=== PATIENT | male | born 1965 | race Caucasian/White ===

== ENCOUNTER 2021-11-28 07:45 | Inpatient (IN) | payer OTHER ==
[~2021-11-28] VITALS: Ht 185.4 cm; Wt 104.3 kg
[~2021-11-28 07:45] MED LIST: CEFADROXIL500 MG PO; PERCOCET 5-3251 EACH PO; XARELTO10 MG PO
[2021-11-28] MEDS ORDERED: METFORMIN HCL500 M3 PO (09:21)
[2021-11-28] MEDS ORDERED: PRILOSEC OTC20 MG PO (09:21)
[2021-11-28] MEDS ORDERED: LIPITOR20 MG PO (09:21)
[2021-11-28] MEDS ORDERED: CIALIS5 MG PO (09:22)
[2021-12-02] MEDS ORDERED: OMEPRAZOLE20 MG (10:23)
[2021-12-04] MEDS ORDERED: PERCOCET 5-3251 EACH PO (13:12)
[2021-12-04] MEDS ORDERED: DUI500 PO (13:12)
[2021-12-04] MEDS ORDERED: XARELTO10 MG PO (13:12)
== END 2021-12-04 19:16 | disposition home or self-care (01) | DRG 470 ==
LOC: O/R 12-02 06:08 → SURH 12-02 06:08
PROVIDERS: ADMIT Orthopaedic Surgery; ATTEND Orthopaedic Surgery
PROC: 0SRD0J9 Replacement of Left Knee Joint with Synthetic Substitute, Cemented, Open Approach (ICD-10-PCS; principal; 2021-12-02 16:30)
DX: M17.12 Unilateral primary osteoarthritis, left knee (principal); D62 Acute posthemorrhagic anemia; M22.12 Recurrent subluxation of patella, left knee; E11.9 Type 2 diabetes mellitus without complications; K21.9 Gastro-esophageal reflux disease without esophagitis; Z20.822 Contact with and (suspected) exposure to COVID-19

== ENCOUNTER 2024-09-29 09:57 | Outpatient (CLI) | payer OTHER ==
[~2024-09-29 09:57] MED LIST changes: +CIALIS5 MG PO; +DUI500 PO; +LIPITOR20 MG PO; +METFORMIN HCL500 M3 PO; +OMEPRAZOLE20 MG; +PRILOSEC OTC20 MG PO
== END 2024-09-29 10:03 | disposition home or self-care (01) ==
LOC: SONOGRAMA 09:57
DX: L98.9 Disorder of the skin and subcutaneous tissue, unspecified (principal)

== ENCOUNTER 2024-10-16 14:52 | Outpatient (CLI) | payer OTHER | END 2024-10-16 14:55 | disposition home or self-care (01) | LOC: RAD 14:52 | PROVIDERS: ATTEND Orthopaedic Surgery Orthopaedic Surgery of the Spine | DX: M43.26 Fusion of spine, lumbar region (principal) ==

== ENCOUNTER → 2024-12-29 | Emergency (ER) | payer OTHER ==
[~2024-12-29] VITALS: Ht 185.4 cm; Wt 103.4 kg
[~2024-12-29] MED LIST changes: +POVIDONE-IODINE 118 ML BOTT TOP ONE
== END | disposition home or self-care (01) ==
LOC: ER 11:04
DX: S69.82XA Other specified injuries of left wrist, hand and finger(s), initial encounter (principal); W18.39XA Other fall on same level, initial encounter; Y93.89 Activity, other specified; Y92.413 State road as the place of occurrence of the external cause

== ENCOUNTER 2025-03-16 12:44 | Outpatient (CLI) | payer OTHER ==
[~2025-03-16 12:44] MED LIST changes: -POVIDONE-IODINE 118 ML BOTT TOP ONE
== END 2025-03-16 12:46 | disposition home or self-care (01) ==
LOC: TOM 12:44
PROVIDERS: ATTEND Internal Medicine
DX: R06.00 Dyspnea, unspecified (principal); G47.33 Obstructive sleep apnea (adult) (pediatric); J44.9 Chronic obstructive pulmonary disease, unspecified; F17.200 Nicotine dependence, unspecified, uncomplicated; J45.30 Mild persistent asthma, uncomplicated

== ENCOUNTER 2025-06-05 06:45 | Outpatient (CLI) | payer OTHER ==
[2025-06-05 07:48] LABS: BASO % 0.6 % (0.1-1.2); EOS # 0.25 (0.04-0.54); EOS % 3.1 % (0.7-7.0); LYMPH # 3.05 (1.18-3.74); LYMPH % 37.6 % (19.3-53.1); MEAN PLATELET VOLUME 9.30 fl (9.4-12.4); MONO # 0.63 (0.24-0.82); MONO % 7.8 % (4.7-12.5); NEUT # 4.11 (1.56-6.13); NEUT % 50.7 % (34.0-71.1); RED CELL DISTRIBUTION WIDTH 12.8 % (11.6-14.4)
[2025-06-05 07:50] LABS: URINE APPEARANCE Clear; URINE BILIRRUBIN Negative (NEGATIVE); URINE BLOOD Small; URINE COLOR Yellow; URINE GLUCOSE Negative (NEGATIVE); URINE KETONE Negative (NEGATIVE); URINE LEUKOCYTE Negative; URINE NITRATE Negative; URINE PROTEIN Trace (NEGATIVE); URINE UROBILINOGEN 0.2 E.U./dl
[2025-06-05 07:51] LABS: URINE BACTERIA 5.9 uL (0.0-1933); URINE EPITHELIAL CELLS 2.2 uL (0.0-38.8); URINE RBC 44.2 uL (0.0-20.8); URINE WBC 1.9 uL (0.0-23.2)
[2025-06-05 08:11] LABS: URINE CAST 0.00 uL (0.0-1.40)
[2025-06-05 08:53] LABS: ALT/SGPT 28.0 U/L (12-78); AST/SGOT 14.0 U/L (15-37); BILIRUBIN TOTAL 0.44 mg/dL (0.3-1.2); BUN CREA RATIO 28.0 (7.0-25.0); CHOL HDL RATIO 3.9 (0-5.0); CREATININE SERUM 0.87 mg/dL (0.70-1.30); GFR 89.21; GLOBULINA 3.0 G/DL (2.4-3.5); GLUCOSE FASTING 129.0 mg/dL (65-100); HDL 41.0 mg/dl (40-60); LDL 103.0 mg/dl (0-130); OSMOLALITY SERUM 291.0 MOSM/KG (275-295); PROSTATIC SPECIFIC ANTIGEN 1.02 NG/ML (0.010-4.00); TSH 1.52 uIU/mL (0.358-3.74); VLDL 17.0 (0-39)
[2025-06-05 10:16] LABS: ob NEGATIVE (NEGATIVE)
== END 2025-06-05 06:49 | disposition home or self-care (01) ==
LOC: LAB 06:45
DX: I11.9 Hypertensive heart disease without heart failure (principal); E11.69 Type 2 diabetes mellitus with other specified complication; E78.5 Hyperlipidemia, unspecified; N40.0 Benign prostatic hyperplasia without lower urinary tract symptoms; Z12.11 Encounter for screening for malignant neoplasm of colon